=== PATIENT | female | born 1940 | race African-American/Black ===

== ENCOUNTER 2017-03-30 05:50 | Inpatient (IN) ==
[2017-03-30] MEDS ORDERED: POTASSIUM CHLORIDE RIDER 10 MEQ in PREMIX 1 EACH IV PRN (06:13)
[2017-03-30] MEDS ORDERED: MAGNESIUM SULF RIDER 2 GM in PREMIX 1 EACH IV PRN (06:17)
[2017-03-30] MEDS ORDERED: diphenhydrAMINE CAP 25 MG CAPSULE PO ONE (06:30)
[2017-03-30] MEDS ORDERED: DIAZEPAM 5 MG TABLET PO ONE (06:30)
[2017-03-30] MEDS ORDERED: ASPIRIN 325 MG TABLET PO ONE (06:30)
[2017-03-30] MEDS ORDERED: diphenhydrAMINE CAP 25 MG CAPSULE ONE (07:30)
[2017-03-30] MEDS ORDERED: DIAZEPAM 5 MG TABLET ONE (07:30)
[2017-03-30] MEDS: SODIUM CHLORIDE 0.9% 1,000 ML IV SCH (07:35)
[2017-03-30] MEDS ORDERED: LIDOCAINE 1% 20 ML VIAL ONE (09:11)
[2017-03-30] MEDS ORDERED: HEPARIN/NACL 0.9% 2 UNITS/ML 2,000 ML IV ONE (09:11)
[2017-03-30] MEDS ORDERED: MIDAZOLAM 2 MG/2 ML VIAL ONE (09:50)
[2017-03-30] MEDS ORDERED: HYDROmorphone 2 MG/1 ML VIAL ONE (09:50)
[2017-03-30] MEDS ORDERED: VERAPAMIL 5 MG/2 ML VIAL ONE (09:55)
[2017-03-30] MEDS ORDERED: NITROGLYCERIN DRIP 50 MG/250 ML BOTTLE IV ONE (09:55)
[2017-03-30] MEDS ORDERED: ENOXAPARIN 30 MG/0.3 ML SYRINGE ONE (09:59)
[2017-03-30] MEDS ORDERED: CLOPIDOGREL 300 MG TABLET ONE (10:08)
[2017-03-30] MEDS: ACETAMINOPHEN 325 MG TABLET PO SCH ×2 (15:16→20:50)
[2017-03-30] MEDS ORDERED: INSULIN NPH/REGULAR 70/30 100 UNIT/ML SUBCUT SCH (16:30)
[2017-03-30] MEDS ORDERED: BISACODYL 5 MG TABLET PO PRN (16:46)
[2017-03-30] MEDS ORDERED: ZALEPLON 5 MG CAPSULE PO PRN (16:46)
[2017-03-30] MEDS ORDERED: guaiFENesin/DM ER 600-30 MG TABLET PO PRN (16:46)
[2017-03-30] MEDS ORDERED: ONDANSETRON 4 MG/2 ML VIAL IV PRN (16:46)
[2017-03-30] MEDS: POTASSIUM CHLORIDE 20 MEQ TABLET PO SCH (20:49)
[2017-03-30] MEDS: CARVEDILOL 25 MG TABLET PO SCH (20:49)
[2017-03-30] MEDS ORDERED: ROSUVASTATIN 10 MG TABLET PO SCH (21:00)
[2017-03-31 05:54] LABS: Basophils # 0.1 10*3/uL (0.0-0.2); Basophils % 0.7 % (0.0-0.8); Eosinophils # 0.2 10*3/uL (0.0-0.87); Eosinophils % 3.3 % (0.00-10.9); Hematocrit 41.8 VOL% (35.7-47.0); Hemoglobin 13.5 GM/DL (12.0-16.0); Immature Granulocytes % 0.4 %; Immature Granulocytes Absolute 0.03 #; Lymphocytes # 1.4 10*3/uL (1.4-4.0); Lymphocytes % 19.2 % (21.3-54.2); Mean Corpuscular HGB Conc 32.3 GM/DL (32-36); Mean Corpuscular Hemoglobin 30 PG (27-34); Mean Corpuscular Volume 93.9 FL (87-102); Mean Platelet Volume 10.6 FL (9.6-12.0); Monocytes # 0.6 10*3/uL (0.11-0.8); Monocytes % 7.7 % (1.7-12.7); Neutrophils % 68.7 % (38.7-73.9); Platelet Count 142 T/CUMM (130-400); Red Blood Count 4.45 MC/CUMM (3.8-5.5); Red Cell Distribution Width 12.9 % (9.3-17.3); White Blood Count 7.3 T/CUMM (4-12)
[2017-03-31 06:21] LABS: Blood Urea Nitrogen 15 MG/DL (7-18); Glucose 151 MG/DL (74-106); Osmolality,Calculated 289.8 MOS/KG (273-304); Sodium 144 MMOL/L (136-145); Troponin I Only < 0.015 NG/ML (0.00-0.045)
[2017-03-31] MEDS: SODIUM CHLORIDE 0.9% 1,000 ML IV SCH (06:25)
[2017-03-31] MEDS ORDERED: INSULIN NPH/REGULAR 70/30 100 UNIT/ML SUBCUT SCH (07:30)
[2017-03-31 08:30] VITALS: BP 130/55
[2017-03-31] MEDS ORDERED: PANTOPRAZOLE 40 MG TABLET PO SCH (09:00)
[2017-03-31] MEDS ORDERED: CLOPIDOGREL 75 MG TABLET PO SCH (09:00)
[2017-03-31] MEDS ORDERED: ASPIRIN 325 MG TABLET PO SCH (09:00)
[2017-03-31] MEDS ORDERED: CHOLECALCIFEROL 1,000 UNIT TABLET PO SCH (09:00)
[2017-03-31] MEDS ORDERED: LOSARTAN 50 MG TABLET PO SCH (09:00)
[2017-03-31] MEDS ORDERED: FUROSEMIDE 80 MG TABLET PO SCH (09:00)
[2017-03-31] MEDS ORDERED: THYROID 60 MG TABLET PO SCH (09:00)
[2017-03-31] MEDS: POTASSIUM CHLORIDE 20 MEQ TABLET PO SCH (09:10)
[2017-03-31] MEDS: CARVEDILOL 25 MG TABLET PO SCH (09:10)
[2017-03-31] MEDS: ACETAMINOPHEN 325 MG TABLET PO SCH (09:11)
== END 2017-03-31 12:29 | disposition home or self-care (01) | DRG 247 ==
LOC: N.CL 05:50 → N.TELES 10:12
PROVIDERS: ADMIT Internal Medicine Cardiovascular Disease; ATTEND Internal Medicine Cardiovascular Disease

== ENCOUNTER 2017-08-16 12:07 | Inpatient (IN) ==
[2017-08-16 13:33] LABS: Basophils % 0.8 % (0.0-0.8); Eosinophils # 0.1 10*3/uL (0.0-0.87); Eosinophils % 1.6 % (0.00-10.9); Hematocrit 42.9 VOL% (35.7-47.0); Hemoglobin 14.2 GM/DL (12.0-16.0); Immature Granulocytes % 0.2 %; Immature Granulocytes Absolute 0.01 #; Lymphocytes # 1.4 10*3/uL (1.4-4.0); Lymphocytes % 28.7 % (21.3-54.2); Mean Corpuscular HGB Conc 33.1 GM/DL (32-36); Mean Corpuscular Hemoglobin 30 PG (27-34); Mean Corpuscular Volume 89.4 FL (87-102); Mean Platelet Volume 10.6 FL (9.6-12.0); Monocytes # 0.5 10*3/uL (0.11-0.8); Neutrophils # 2.9 10*3/uL (1.4-7.4); Neutrophils % 58.7 % (38.7-73.9); Platelet Count 185 T/CUMM (130-400); Red Cell Distribution Width 12.8 % (9.3-17.3)
[2017-08-16 13:42] LABS: PT Patient Result 10.3 SECS
[2017-08-16 14:02] LABS: Alanine Aminotransferase 47 U/L (13-56); Albumin 3.7 G/DL (3.4-5.0); Alkaline Phosphatase 126 U/L (45-117); Aspartate Amino Transferase 33 U/L (0-37); Blood Urea Nitrogen 37 MG/DL (7-18); Calcium 9.6 MG/DL (8.5-10.1); Glucose 169 MG/DL (74-106); Osmolality,Calculated 291.4 MOS/KG (273-304); Potassium 2.8 MMOL/L (3.5-5.1); Sodium 140 MMOL/L (136-145); Total Protein 8.4 G/DL (6.4-8.3)
[2017-08-16 15:20] LABS: Apearance,Urine CLEAR (Clear); Bilirubin,Urine Negative (Negative); Blood, Urine Negative (Negative); Glucose,Urine (UA) Negative (Negative); Hyaline Casts,Urine 3 /LPF (0-3); Ketones,Urine Negative (Negative); Nitrite,Urine Negative (Negative); Protein,Urine Negative; Squamous Epithelial Cell,Urine Occasional /HPF (0-10); Urine Color Straw (Yellow); Urine Specific Gravity 1.005 (1.001-1.035); Urine Urobilinogen < 2.0 EU/DL (0.2-1.0)
[2017-08-16] MEDS ORDERED: POTASSIUM CHLORIDE 20 MEQ TABLET PO STA (15:22)
[2017-08-16] MEDS ORDERED: ONDANSETRON 4 MG/2 ML VIAL IV PRN (16:15)
[2017-08-16] MEDS ORDERED: GLUCAGON 1 MG VIAL IM PRN (16:15)
[2017-08-16] MEDS ORDERED: DEXTROSE 50% 25 GM/50 ML VIAL IV PRN (16:15)
[2017-08-16] MEDS ORDERED: ACETAMINOPHEN 325 MG TABLET PO PRN (16:15)
[2017-08-16] MEDS ORDERED: COLCHICINE 0.6 MG TABLET PO PRN (16:16)
[2017-08-16] MEDS ORDERED: SODIUM CHLORIDE 0.9% 1,000 ML IV SCH (16:30)
[2017-08-16] MEDS ORDERED: ENOXAPARIN 40 MG/0.4 ML SYRINGE SUBCUT SCH (16:30)
[2017-08-16] MEDS: POTASSIUM CHLORIDE 20 MEQ TABLET PO SCH (21:09)
[2017-08-16] MEDS: ROSUVASTATIN 10 MG TABLET PO SCH (21:09)
[2017-08-16] MEDS: CARVEDILOL 25 MG TABLET PO SCH (21:09)
[2017-08-16] MEDS: INSULIN LISPRO 100 UNIT/ML SUBCUT SCH (22:41)
[2017-08-16] MEDS: PEG BOTH EYES SCH (22:44)
[2017-08-16] MEDS: PROPYLENE GLYCOL BOTH EYES SCH (22:44)
[2017-08-17 05:41] LABS: Basophils % 0.7 % (0.0-0.8); Eosinophils # 0.1 10*3/uL (0.0-0.87); Eosinophils % 1.3 % (0.00-10.9); Hematocrit 39.1 VOL% (35.7-47.0); Hemoglobin 12.7 GM/DL (12.0-16.0); Immature Granulocytes % 0.2 %; Immature Granulocytes Absolute 0.01 #; Lymphocytes # 1.7 10*3/uL (1.4-4.0); Lymphocytes % 31.5 % (21.3-54.2); Mean Corpuscular HGB Conc 32.5 GM/DL (32-36); Mean Corpuscular Hemoglobin 29 PG (27-34); Mean Corpuscular Volume 90.5 FL (87-102); Mean Platelet Volume 10.7 FL (9.6-12.0); Monocytes # 0.8 10*3/uL (0.11-0.8); Monocytes % 15.1 % (1.7-12.7); Neutrophils # 2.8 10*3/uL (1.4-7.4); Neutrophils % 51.2 % (38.7-73.9); Platelet Count 160 T/CUMM (130-400); Red Blood Count 4.32 MC/CUMM (3.8-5.5); Red Cell Distribution Width 12.7 % (9.3-17.3); White Blood Count 5.5 T/CUMM (4-12)
[2017-08-17 06:14] LABS: Osmolality,Calculated 301.3 MOS/KG (273-304); Potassium 3.3 MMOL/L (3.5-5.1); Risk Ratio 5.74; Thyroid Stimulating Hormone 0.511 uIU/ml (0.358-3.74); VLDL CHOLESTEROL 42.8 MG/DL
[2017-08-17] MEDS ORDERED: glipiZIDE 10 MG TABLET PO SCH (07:30)
[2017-08-17] MEDS ORDERED: LOSARTAN 50 MG TABLET PO SCH (09:00)
[2017-08-17] MEDS ORDERED: metOLazone 5 MG TABLET PO SCH (10:00)
[2017-08-17] MEDS: INSULIN NPH/REGULAR 70/30 100 UNIT/ML SUBCUT SCH ×3 (10:20→17:38)
[2017-08-17] MEDS: INSULIN LISPRO 100 UNIT/ML SUBCUT SCH ×5 (10:20→21:38)
[2017-08-17] MEDS: CHOLECALCIFEROL 1,000 UNIT TABLET PO SCH (10:21)
[2017-08-17] MEDS: FUROSEMIDE 80 MG TABLET PO SCH ×2 (10:21→14:23)
[2017-08-17] MEDS: POTASSIUM CHLORIDE 20 MEQ TABLET PO SCH ×2 (10:22→17:37)
[2017-08-17] MEDS: CARVEDILOL 25 MG TABLET PO SCH ×2 (10:22→21:31)
[2017-08-17] MEDS: ASPIRIN 325 MG TABLET PO SCH (10:22)
[2017-08-17] MEDS: CLOPIDOGREL 75 MG TABLET PO SCH (10:23)
[2017-08-17] MEDS: PROPYLENE GLYCOL BOTH EYES SCH ×2 (10:27→21:39)
[2017-08-17] MEDS: PEG BOTH EYES SCH ×2 (10:27→21:39)
[2017-08-17] MEDS: THYROID PORK 30 MG PO SCH (10:32)
[2017-08-17] MEDS ORDERED: POTASSIUM CHLORIDE 20 MEQ TABLET PO ONE (14:09)
[2017-08-17] MEDS: ENOXAPARIN 30 MG/0.3 ML SYRINGE SUBCUT SCH (21:31)
[2017-08-17] MEDS: ROSUVASTATIN 10 MG TABLET PO SCH (21:31)
[2017-08-18 06:20] LABS: Calcium 9.6 MG/DL (8.5-10.1)
[2017-08-18] MEDS ORDERED: POTASSIUM CHLORIDE RIDER 10 MEQ in PREMIX 1 EACH IV PRN (08:07)
[2017-08-18] MEDS: INSULIN LISPRO 100 UNIT/ML SUBCUT SCH ×4 (08:42→21:07)
[2017-08-18] MEDS: INSULIN NPH/REGULAR 70/30 100 UNIT/ML SUBCUT SCH ×2 (08:48→17:06)
[2017-08-18] MEDS ORDERED: SPIRONOLACTONE 25 MG TABLET PO SCH (09:00)
[2017-08-18] MEDS ORDERED: FUROSEMIDE 80 MG TABLET PO SCH (09:00)
[2017-08-18] MEDS: POTASSIUM CHLORIDE 20 MEQ TABLET PO SCH ×2 (09:22→17:06)
[2017-08-18] MEDS: ASPIRIN 325 MG TABLET PO SCH (09:23)
[2017-08-18] MEDS: SODIUM CHLORIDE 0.45% 1,000 ML IV SCH (09:23)
[2017-08-18] MEDS: LOSARTAN 50 MG TABLET PO SCH (09:23)
[2017-08-18] MEDS: CARVEDILOL 25 MG TABLET PO SCH ×2 (09:23→21:08)
[2017-08-18] MEDS: FUROSEMIDE 40 MG TABLET PO SCH (09:23)
[2017-08-18] MEDS: CLOPIDOGREL 75 MG TABLET PO SCH (09:23)
[2017-08-18] MEDS: CHOLECALCIFEROL 1,000 UNIT TABLET PO SCH (09:23)
[2017-08-18] MEDS ORDERED: POTASSIUM CHLORIDE 20 MEQ TABLET PO SCH (10:00)
[2017-08-18] MEDS: PEG BOTH EYES SCH ×2 (10:25→21:14)
[2017-08-18] MEDS: PROPYLENE GLYCOL BOTH EYES SCH ×2 (10:25→21:14)
[2017-08-18] MEDS: THYROID PORK 30 MG PO SCH (10:26)
[2017-08-18] MEDS: POTASSIUM CHLORIDE RIDER 10 MEQ in PREMIX 1 EACH IV SCH ×2 (10:50→12:34)
[2017-08-18] MEDS: SPIRONOLACTONE 50 MG TABLET PO SCH (12:34)
[2017-08-18] MEDS ORDERED: ZINC OXIDE PASTE 113 GM TUBE TOP PRN (15:00)
[2017-08-18] MEDS: ENOXAPARIN 30 MG/0.3 ML SYRINGE SUBCUT SCH (21:07)
[2017-08-18] MEDS: ROSUVASTATIN 10 MG TABLET PO SCH (21:08)
[2017-08-19] MEDS: SODIUM CHLORIDE 0.45% 1,000 ML IV SCH (05:31)
[2017-08-19 06:24] LABS: Calcium 8.9 MG/DL (8.5-10.1); Osmolality,Calculated 292.5 MOS/KG (273-304); Potassium 3.4 MMOL/L (3.5-5.1)
[2017-08-19] MEDS: INSULIN NPH/REGULAR 70/30 100 UNIT/ML SUBCUT SCH ×2 (09:24→17:21)
[2017-08-19] MEDS: CLOPIDOGREL 75 MG TABLET PO SCH (09:26)
[2017-08-19] MEDS: POTASSIUM CHLORIDE 20 MEQ TABLET PO SCH ×2 (09:26→17:23)
[2017-08-19] MEDS: INSULIN LISPRO 100 UNIT/ML SUBCUT SCH ×4 (09:26→20:51)
[2017-08-19] MEDS: ASPIRIN 325 MG TABLET PO SCH (09:26)
[2017-08-19] MEDS: SPIRONOLACTONE 50 MG TABLET PO SCH (09:26)
[2017-08-19] MEDS: CARVEDILOL 25 MG TABLET PO SCH ×2 (09:27→20:51)
[2017-08-19] MEDS: CHOLECALCIFEROL 1,000 UNIT TABLET PO SCH (09:27)
[2017-08-19] MEDS: LOSARTAN 50 MG TABLET PO SCH (09:27)
[2017-08-19] MEDS: FUROSEMIDE 40 MG TABLET PO SCH (09:27)
[2017-08-19] MEDS: PEG BOTH EYES SCH ×2 (09:34→21:15)
[2017-08-19] MEDS: THYROID PORK 30 MG PO SCH (09:34)
[2017-08-19] MEDS: PROPYLENE GLYCOL BOTH EYES SCH ×2 (09:34→21:15)
[2017-08-19] MEDS ORDERED: POTASSIUM CHLORIDE 20 MEQ TABLET PO ONE (13:01)
[2017-08-19] MEDS: POTASSIUM CHLORIDE RIDER 10 MEQ in PREMIX 1 EACH IV SCH ×2 (15:05→16:10)
[2017-08-19] MEDS: ENOXAPARIN 30 MG/0.3 ML SYRINGE SUBCUT SCH (20:51)
[2017-08-19] MEDS: ROSUVASTATIN 10 MG TABLET PO SCH (20:51)
[2017-08-20 06:19] LABS: Calcium 9.5 MG/DL (8.5-10.1); Osmolality,Calculated 293.3 MOS/KG (273-304); Potassium 4.3 MMOL/L (3.5-5.1)
[2017-08-20] MEDS ORDERED: THYROID 60 MG TABLET PO SCH (07:30)
[2017-08-20 07:44] VITALS: BP 137/69
[2017-08-20] MEDS: INSULIN LISPRO 100 UNIT/ML SUBCUT SCH ×2 (07:54→14:09)
[2017-08-20] MEDS: INSULIN NPH/REGULAR 70/30 100 UNIT/ML SUBCUT SCH (09:04)
[2017-08-20] MEDS: POTASSIUM CHLORIDE 20 MEQ TABLET PO SCH (09:06)
[2017-08-20] MEDS: LOSARTAN 50 MG TABLET PO SCH (09:06)
[2017-08-20] MEDS: CLOPIDOGREL 75 MG TABLET PO SCH (09:06)
[2017-08-20] MEDS: CARVEDILOL 25 MG TABLET PO SCH (09:06)
[2017-08-20] MEDS: ASPIRIN 325 MG TABLET PO SCH (09:07)
[2017-08-20] MEDS: CHOLECALCIFEROL 1,000 UNIT TABLET PO SCH (09:07)
[2017-08-20] MEDS: SPIRONOLACTONE 50 MG TABLET PO SCH (09:07)
[2017-08-20] MEDS: PROPYLENE GLYCOL BOTH EYES SCH (09:08)
[2017-08-20] MEDS: FUROSEMIDE 40 MG TABLET PO SCH (09:08)
[2017-08-20] MEDS: PEG BOTH EYES SCH (09:08)
== END 2017-08-20 14:13 | disposition home or self-care (01) | DRG 641 ==
LOC: EDUNIT# → EDBD → N.ED 12:07 → N.EDINP 12:07 → N.2W 16:41 → N.TELES 19:35
PROVIDERS: ADMIT Internal Medicine; ATTEND Internal Medicine

== ENCOUNTER 2018-02-01 14:23 | Observation (INO) ==
[2018-02-01] MEDS ORDERED: LACTATED RINGERS 500 ML IV ONE (14:56)
[2018-02-01 15:09] LABS: Basophils % 0.8 % (0.0-0.8); Eosinophils # 0.1 10*3/uL (0.0-0.87); Eosinophils % 2.1 % (0.00-10.9); Hematocrit 39.9 VOL% (35.7-47.0); Hemoglobin 13.3 GM/DL (12.0-16.0); Immature Granulocytes % 0.4 %; Immature Granulocytes Absolute 0.02 #; Lymphocytes # 1.5 10*3/uL (1.4-4.0); Mean Corpuscular HGB Conc 33.3 GM/DL (32-36); Mean Corpuscular Hemoglobin 30 PG (27-34); Mean Corpuscular Volume 90.3 FL (87-102); Mean Platelet Volume 10.8 FL (9.6-12.0); Monocytes # 0.5 10*3/uL (0.11-0.8); Neutrophils # 3.1 10*3/uL (1.4-7.4); Neutrophils % 57.7 % (38.7-73.9); Platelet Count 170 T/CUMM (130-400); Red Blood Count 4.42 MC/CUMM (3.8-5.5); White Blood Count 5.3 T/CUMM (4-12)
[2018-02-01 15:31] LABS: Alanine Aminotransferase 33 U/L (13-56); Albumin 3.6 G/DL (3.4-5.0); Alkaline Phosphatase 97 U/L (45-117); Aspartate Amino Transferase 18 U/L (0-37); Bilirubin,Total < 0.39 MG/DL (0.2-1.0); Blood Urea Nitrogen 30 MG/DL (7-18); Calcium 9.7 MG/DL (8.5-10.1); Glucose 342 MG/DL (74-106); Osmolality,Calculated 292.8 MOS/KG (273-304); Potassium 3.7 MMOL/L (3.5-5.1); Sodium 137 MMOL/L (136-145); Total Protein 7.9 G/DL (6.4-8.3)
[2018-02-01 17:02] LABS: Apearance,Urine Slightly Hazy (Clear); Bacteria,Urine Many /HPF (Few); Bilirubin,Urine Negative (Negative); Blood, Urine Negative (Negative); Glucose,Urine (UA) 150 mg/dL (Negative); Hyaline Casts,Urine 7 /LPF (0-3); Ketones,Urine Negative (Negative); Mucus,Urine Occasional /LPF (Occasional); Nitrite,Urine Negative (Negative); Protein,Urine Negative; RBC,Urine <1 /HPF (0-4); Squamous Epithelial Cell,Urine Occasional /HPF (0-10); Urine Color Straw (Yellow); Urine Specific Gravity 1.006 (1.001-1.035); Urine Urobilinogen < 2.0 EU/DL (0.2-1.0); WBC,Urine 4 /HPF (0-6)
[2018-02-01] MEDS ORDERED: LACTATED RINGERS 1,000 ML IV ONE (17:11)
[2018-02-01] MEDS ORDERED: cefTRIAXone 1,000 MG in SODIUM CHLORIDE 0.9% 100 ML IV STA (17:21)
[2018-02-01] MEDS ORDERED: FLUCONAZOLE 200 MG TABLET PO STA (18:11)
[2018-02-01] MEDS ORDERED: DEXTROSE 50% 25 GM/50 ML VIAL IV PRN (18:58)
[2018-02-01] MEDS ORDERED: GLUCAGON 1 MG VIAL IM PRN (18:58)
[2018-02-01] MEDS ORDERED: ONDANSETRON 4 MG/2 ML VIAL IV PRN (18:58)
[2018-02-01] MEDS ORDERED: DOCUSATE SODIUM 100 MG CAPSULE PO PRN (18:58)
[2018-02-01] MEDS ORDERED: ACETAMINOPHEN 325 MG TABLET PO PRN (18:58)
[2018-02-01 21:27] LABS: Troponin I < 0.015 NG/ML (0.00-0.045)
[2018-02-01] MEDS: INSULIN REGULAR 100 UNIT/ML SUBCUT SCH (22:11)
[2018-02-01] MEDS: CARVEDILOL 25 MG TABLET PO SCH (22:12)
[2018-02-01] MEDS: ENOXAPARIN 30 MG/0.3 ML SYRINGE SUBCUT SCH (22:13)
[2018-02-01] MEDS: GABAPENTIN 100 MG CAPSULE PO SCH (22:13)
[2018-02-01] MEDS: CEFTAROLINE 400 MG in SODIUM CHLORIDE 0.9% 100 ML IV SCH (22:20)
[2018-02-02 05:46] LABS: Basophils # 0.1 10*3/uL (0.0-0.2); Basophils % 0.8 % (0.0-0.8); Eosinophils # 0.1 10*3/uL (0.0-0.87); Eosinophils % 2.1 % (0.00-10.9); Hematocrit 37.2 VOL% (35.7-47.0); Hemoglobin 12.5 GM/DL (12.0-16.0); Immature Granulocytes % 0.3 %; Immature Granulocytes Absolute 0.02 #; Lymphocytes # 2.4 10*3/uL (1.4-4.0); Lymphocytes % 36.3 % (21.3-54.2); Mean Corpuscular HGB Conc 33.6 GM/DL (32-36); Mean Corpuscular Hemoglobin 30 PG (27-34); Mean Corpuscular Volume 89.6 FL (87-102); Monocytes # 0.8 10*3/uL (0.11-0.8); Monocytes % 12.7 % (1.7-12.7); Neutrophils # 3.1 10*3/uL (1.4-7.4); Neutrophils % 47.8 % (38.7-73.9); Platelet Count 148 T/CUMM (130-400); Red Blood Count 4.15 MC/CUMM (3.8-5.5); Red Cell Distribution Width 12.1 % (9.3-17.3); White Blood Count 6.5 T/CUMM (4-12)
[2018-02-02 05:58] LABS: CKMB % 2.4 %; Troponin I < 0.015 NG/ML (0.00-0.045)
[2018-02-02 06:08] LABS: Albumin 2.9 G/DL (3.4-5.0); Bilirubin,Total 0.5 MG/DL (0.2-1.0); Calcium 9.4 MG/DL (8.5-10.1); Osmolality,Calculated 288.4 MOS/KG (273-304); Potassium 3.8 MMOL/L (3.5-5.1); Thyroid Stimulating Hormone 0.462 uIU/ml (0.358-3.74); Total Protein 6.8 G/DL (6.4-8.3)
[2018-02-02] MEDS ORDERED: COLCHICINE 0.6 MG TABLET PO PRN (08:42)
[2018-02-02] MEDS ORDERED: metOLazone 5 MG TABLET PO PRN (08:42)
[2018-02-02] MEDS: ASPIRIN 325 MG TABLET PO SCH (09:15)
[2018-02-02] MEDS: CHOLECALCIFEROL 1,000 UNIT TABLET PO SCH (09:15)
[2018-02-02] MEDS: FUROSEMIDE 40 MG TABLET PO SCH (09:15)
[2018-02-02] MEDS: SPIRONOLACTONE 25 MG TABLET PO SCH (09:16)
[2018-02-02] MEDS: CLOPIDOGREL 75 MG TABLET PO SCH (09:16)
[2018-02-02] MEDS: CARVEDILOL 25 MG TABLET PO SCH ×2 (09:16→16:39)
[2018-02-02] MEDS: GABAPENTIN 100 MG CAPSULE PO SCH ×3 (09:16→20:39)
[2018-02-02] MEDS: POTASSIUM CHLORIDE 20 MEQ TABLET PO SCH (09:16)
[2018-02-02] MEDS: CEFTAROLINE 400 MG in SODIUM CHLORIDE 0.9% 100 ML IV SCH (09:17)
[2018-02-02] MEDS: glipiZIDE 10 MG TABLET PO SCH (09:23)
[2018-02-02] MEDS: LOSARTAN 50 MG TABLET PO SCH (09:23)
[2018-02-02] MEDS ORDERED: SODIUM CHLORIDE 0.9% 250 ML IV ONE (09:47)
[2018-02-02] MEDS: INSULIN NPH/REGULAR 70/30 100 UNIT/ML SUBCUT SCH (10:06)
[2018-02-02] MEDS: INSULIN REGULAR 100 UNIT/ML SUBCUT SCH ×3 (15:00→20:39)
[2018-02-02] MEDS ORDERED: INSULIN NPH/REGULAR 70/30 100 UNIT/ML SUBCUT SCH (16:30)
[2018-02-02] MEDS: ENOXAPARIN 30 MG/0.3 ML SYRINGE SUBCUT SCH (20:39)
[2018-02-02] MEDS ORDERED: ROSUVASTATIN 10 MG TABLET PO SCH (21:00)
[2018-02-03 08:08] VITALS: BP 146/68
[2018-02-03] MEDS: INSULIN NPH/REGULAR 70/30 100 UNIT/ML SUBCUT SCH ×2 (08:33→09:48)
[2018-02-03] MEDS: FUROSEMIDE 40 MG TABLET PO SCH (08:35)
[2018-02-03] MEDS: ASPIRIN 325 MG TABLET PO SCH (08:35)
[2018-02-03] MEDS: LOSARTAN 50 MG TABLET PO SCH (08:35)
[2018-02-03] MEDS: CHOLECALCIFEROL 1,000 UNIT TABLET PO SCH (08:36)
[2018-02-03] MEDS: GABAPENTIN 100 MG CAPSULE PO SCH (08:36)
[2018-02-03] MEDS: POTASSIUM CHLORIDE 20 MEQ TABLET PO SCH (08:36)
[2018-02-03] MEDS: CLOPIDOGREL 75 MG TABLET PO SCH (08:37)
[2018-02-03] MEDS: SPIRONOLACTONE 25 MG TABLET PO SCH (08:37)
[2018-02-03] MEDS: glipiZIDE 10 MG TABLET PO SCH (08:37)
[2018-02-03] MEDS: CARVEDILOL 25 MG TABLET PO SCH (08:44)
[2018-02-03] MEDS: INSULIN REGULAR 100 UNIT/ML SUBCUT SCH (09:48)
== END 2018-02-03 12:18 | disposition home health service (06) ==
LOC: N.ED 14:23 → N.EDINP 14:23 → N.TELEN 20:05
PROVIDERS: ADMIT Internal Medicine Infectious Disease; ATTEND Internal Medicine Infectious Disease

== ENCOUNTER 2018-08-25 08:50 | Inpatient (IN) ==
[2018-08-25 09:46] LABS: Basophils % 0.5 % (0.0-0.8); Eosinophils # 0.2 10*3/uL (0.0-0.87); Eosinophils % 3.6 % (0.00-10.9); Hematocrit 39.8 VOL% (35.7-47.0); Hemoglobin 12.9 GM/DL (12.0-16.0); Immature Granulocytes % 0.3 %; Immature Granulocytes Absolute 0.02 #; Lymphocytes # 1.5 10*3/uL (1.4-4.0); Lymphocytes % 23.5 % (21.3-54.2); Mean Corpuscular HGB Conc 32.4 GM/DL (32-36); Mean Corpuscular Volume 92.6 FL (87-102); Mean Platelet Volume 10.5 FL (9.6-12.0); Monocytes % 11.2 % (1.7-12.7); Neutrophils % 60.9 % (38.7-73.9); Platelet Count 152 T/CUMM (130-400); Red Cell Distribution Width 12.6 % (9.3-17.3); White Blood Count 6.3 T/CUMM (4-12)
[2018-08-25 10:06] LABS: Alanine Aminotransferase 27 U/L (13-56); Albumin 3.6 G/DL (3.4-5.0); Alkaline Phosphatase 119 U/L (45-117); Aspartate Amino Transferase 15 U/L (0-37); Bilirubin,Total < 0.39 MG/DL (0.2-1.0); Blood Urea Nitrogen 28 MG/DL (7-18); Calcium 10.2 MG/DL (8.5-10.1); Glucose 147 MG/DL (74-106); Total Protein 7.7 G/DL (6.4-8.3)
[2018-08-25 10:32] LABS: Apearance,Urine CLEAR (Clear); Bacteria,Urine Occasional /HPF (Few); Bilirubin,Urine Negative (Negative); Blood, Urine Moderate mg/dL (Negative); Glucose,Urine (UA) Negative (Negative); Hyaline Casts,Urine 8 /LPF (0-3); Ketones,Urine Negative (Negative); Mucus,Urine Occasional /LPF (Occasional); Nitrite,Urine Negative (Negative); Protein,Urine Negative; RBC,Urine <1 /HPF (0-4); Squamous Epithelial Cell,Urine Occasional /HPF (0-10); Urine Color Straw (Yellow); Urine Specific Gravity 1.009 (1.001-1.035); Urine Urobilinogen < 2.0 EU/DL (0.2-1.0); WBC,Urine <1 /HPF (0-6)
[2018-08-25] MEDS ORDERED: PROMETHAZINE 25 MG/1 ML VIAL IM PRN (11:13)
[2018-08-25] MEDS ORDERED: MORPHINE 4 MG/1 ML VIAL IV PRN (11:13)
[2018-08-25] MEDS ORDERED: ACETAMINOPHEN 325 MG TABLET PO PRN (11:13)
[2018-08-25] MEDS ORDERED: LACTULOSE 20 GM/30 ML UDCUP PO PRN (11:13)
[2018-08-25] MEDS ORDERED: POTASSIUM CHLORIDE 20 MEQ TABLET PO STA ×2 (11:14→11:46)
[2018-08-25] MEDS ORDERED: DEXTROSE 50% 25 GM/50 ML VIAL IV PRN (11:18)
[2018-08-25] MEDS ORDERED: GLUCAGON 1 MG VIAL IM PRN (11:18)
[2018-08-25] MEDS ORDERED: DEXT 5% NACL 0.45% KCL 40 MEQ 40 MEQ/1,000 ML BAG IV SCH (11:30)
[2018-08-25] MEDS ORDERED: POTASSIUM CHLORIDE INJ 40 MEQ in DEXTROSE 5% NACL 0.45% 1,000 ML IV SCH (11:30)
[2018-08-25 12:12] LABS: Thyroid Stimulating Hormone 1.37 uIU/ml (0.358-3.74)
[2018-08-25] MEDS ORDERED: COLCHICINE 0.6 MG CAPSULE PO PRN (12:59)
[2018-08-25] MEDS: INSULIN LISPRO 100 UNIT/ML SUBCUT SCH ×3 (13:55→21:39)
[2018-08-25] MEDS ORDERED: POTASSIUM CHLORIDE 20 MEQ TABLET PO SCH (14:00)
[2018-08-25] MEDS: PANTOPRAZOLE 40 MG TABLET PO SCH (14:46)
[2018-08-25] MEDS: GABAPENTIN 100 MG CAPSULE PO SCH ×2 (14:46→21:40)
[2018-08-25] MEDS: ENOXAPARIN 40 MG/0.4 ML SYRINGE SUBCUT SCH (14:49)
[2018-08-25] MEDS ORDERED: POTASSIUM CHLORIDE 20 MEQ TABLET PO ONE (15:00)
[2018-08-25] MEDS: INSULIN NPH/REGULAR 70/30 100 UNIT/ML SUBCUT SCH (16:46)
[2018-08-25] MEDS: POTASSIUM CHLORIDE 20 MEQ TABLET PO SCH (18:13)
[2018-08-25] MEDS ORDERED: CARVEDILOL 25 MG TABLET PO SCH (21:00)
[2018-08-25] MEDS: ROSUVASTATIN 20 MG TABLET PO SCH (21:44)
[2018-08-26] MEDS: INSULIN LISPRO 100 UNIT/ML SUBCUT SCH ×5 (00:53→22:16)
[2018-08-26 05:43] LABS: Basophils % 0.7 % (0.0-0.8); Eosinophils # 0.2 10*3/uL (0.0-0.87); Eosinophils % 3.3 % (0.00-10.9); Hematocrit 38.2 VOL% (35.7-47.0); Hemoglobin 12.3 GM/DL (12.0-16.0); Immature Granulocytes % 0.2 %; Immature Granulocytes Absolute 0.01 #; Lymphocytes # 1.7 10*3/uL (1.4-4.0); Lymphocytes % 30.2 % (21.3-54.2); Mean Corpuscular HGB Conc 32.2 GM/DL (32-36); Mean Corpuscular Volume 92.9 FL (87-102); Mean Platelet Volume 10.7 FL (9.6-12.0); Monocytes % 16.6 % (1.7-12.7); Platelet Count 140 T/CUMM (130-400); Red Blood Count 4.11 MC/CUMM (3.8-5.5); Red Cell Distribution Width 12.4 % (9.3-17.3); White Blood Count 5.5 T/CUMM (4-12)
[2018-08-26 06:08] LABS: Albumin 3.2 G/DL (3.4-5.0); Bilirubin,Total 0.4 MG/DL (0.2-1.0); Calcium 9.7 MG/DL (8.5-10.1); Osmolality,Calculated 290.3 MOS/KG (273-304); Risk Ratio 3.09; Total Protein 6.8 G/DL (6.4-8.3)
[2018-08-26 06:22] LABS: Band Neutrophils 1 % (0-10); Eosinophils 6 % (0-10); Hypochromasia 1+; Lymphocytes 30 % (20-55); Microcytosis Slight; Segmented Neutrophils 51 % (50-85); Total Cells Counted 100
[2018-08-26 06:23] LABS: Platelet Estimate Adequate
[2018-08-26] MEDS ORDERED: INSULIN NPH/REGULAR 70/30 100 UNIT/ML SUBCUT SCH (07:30)
[2018-08-26] MEDS: INSULIN NPH/REGULAR 70/30 100 UNIT/ML SUBCUT SCH ×2 (08:09→15:43)
[2018-08-26] MEDS ORDERED: POTASSIUM CHLORIDE 20 MEQ TABLET PO ONE (08:56)
[2018-08-26] MEDS ORDERED: SPIRONOLACTONE 25 MG TABLET PO SCH (09:00)
[2018-08-26] MEDS: THYROID 60 MG TABLET PO SCH (09:43)
[2018-08-26] MEDS: CARVEDILOL 12.5 MG TABLET PO SCH ×2 (09:44→22:14)
[2018-08-26] MEDS: GABAPENTIN 100 MG CAPSULE PO SCH ×3 (09:44→22:15)
[2018-08-26] MEDS: ASPIRIN 325 MG TABLET PO SCH (09:45)
[2018-08-26] MEDS: PANTOPRAZOLE 40 MG TABLET PO SCH (09:45)
[2018-08-26] MEDS: CLOPIDOGREL 75 MG TABLET PO SCH (09:45)
[2018-08-26] MEDS: POTASSIUM CHLORIDE INJ 20 MEQ in LACTATED RINGERS 1,000 ML IV SCH ×2 (10:51→22:15)
[2018-08-26] MEDS: ENOXAPARIN 40 MG/0.4 ML SYRINGE SUBCUT SCH (11:07)
[2018-08-26] MEDS: ROSUVASTATIN 20 MG TABLET PO SCH (22:15)
[2018-08-27 04:52] LABS: Basophils % 0.7 % (0.0-0.8); Eosinophils # 0.2 10*3/uL (0.0-0.87); Hematocrit 37.2 VOL% (35.7-47.0); Hemoglobin 11.7 GM/DL (12.0-16.0); Immature Granulocytes % 0.3 %; Immature Granulocytes Absolute 0.02 #; Lymphocytes # 2.2 10*3/uL (1.4-4.0); Lymphocytes % 37.4 % (21.3-54.2); Mean Corpuscular HGB Conc 31.5 GM/DL (32-36); Mean Corpuscular Volume 93.2 FL (87-102); Mean Platelet Volume 10.6 FL (9.6-12.0); Monocytes % 12.5 % (1.7-12.7); Neutrophils % 46.1 % (38.7-73.9); Platelet Count 144 T/CUMM (130-400); Red Blood Count 3.99 MC/CUMM (3.8-5.5); Red Cell Distribution Width 12.4 % (9.3-17.3); White Blood Count 5.9 T/CUMM (4-12)
[2018-08-27 05:13] LABS: Calcium 9.4 MG/DL (8.5-10.1); Osmolality,Calculated 293.4 MOS/KG (273-304)
[2018-08-27] MEDS: POTASSIUM CHLORIDE INJ 20 MEQ in LACTATED RINGERS 1,000 ML IV SCH ×2 (06:23→15:56)
[2018-08-27] MEDS: POTASSIUM CHLORIDE 20 MEQ TABLET PO SCH (07:57)
[2018-08-27] MEDS: GABAPENTIN 100 MG CAPSULE PO SCH ×3 (08:48→20:10)
[2018-08-27] MEDS: THYROID 60 MG TABLET PO SCH (08:48)
[2018-08-27] MEDS: INSULIN LISPRO 100 UNIT/ML SUBCUT SCH ×4 (08:48→20:10)
[2018-08-27] MEDS: PANTOPRAZOLE 40 MG TABLET PO SCH (08:48)
[2018-08-27] MEDS: CLOPIDOGREL 75 MG TABLET PO SCH (08:48)
[2018-08-27] MEDS: ASPIRIN 325 MG TABLET PO SCH (08:48)
[2018-08-27] MEDS: CARVEDILOL 12.5 MG TABLET PO SCH ×2 (08:48→20:10)
[2018-08-27] MEDS: INSULIN NPH/REGULAR 70/30 100 UNIT/ML SUBCUT SCH ×2 (08:48→16:44)
[2018-08-27] MEDS: ENOXAPARIN 40 MG/0.4 ML SYRINGE SUBCUT SCH (12:01)
[2018-08-27] MEDS: ROSUVASTATIN 20 MG TABLET PO SCH (20:10)
[2018-08-28 05:15] LABS: Basophils # 0.1 10*3/uL (0.0-0.2); Basophils % 0.8 % (0.0-0.8); Eosinophils # 0.2 10*3/uL (0.0-0.87); Eosinophils % 3.7 % (0.00-10.9); Hematocrit 37.7 VOL% (35.7-47.0); Hemoglobin 12.3 GM/DL (12.0-16.0); Immature Granulocytes % 0.3 %; Immature Granulocytes Absolute 0.02 #; Lymphocytes # 2.5 10*3/uL (1.4-4.0); Lymphocytes % 41.5 % (21.3-54.2); Mean Corpuscular HGB Conc 32.6 GM/DL (32-36); Mean Corpuscular Volume 92.4 FL (87-102); Monocytes % 14.9 % (1.7-12.7); Neutrophils % 38.8 % (38.7-73.9); Platelet Count 136 T/CUMM (130-400); Red Blood Count 4.08 MC/CUMM (3.8-5.5); Red Cell Distribution Width 12.4 % (9.3-17.3)
[2018-08-28 05:24] LABS: Calcium 9.6 MG/DL (8.5-10.1)
[2018-08-28] MEDS: CARVEDILOL 12.5 MG TABLET PO SCH (08:54)
[2018-08-28] MEDS: CLOPIDOGREL 75 MG TABLET PO SCH (08:54)
[2018-08-28] MEDS: THYROID 60 MG TABLET PO SCH (08:54)
[2018-08-28] MEDS: GABAPENTIN 100 MG CAPSULE PO SCH (08:54)
[2018-08-28] MEDS: ASPIRIN 325 MG TABLET PO SCH (08:55)
[2018-08-28] MEDS: INSULIN NPH/REGULAR 70/30 100 UNIT/ML SUBCUT SCH (08:55)
[2018-08-28] MEDS: PANTOPRAZOLE 40 MG TABLET PO SCH (08:55)
[2018-08-28] MEDS: INSULIN LISPRO 100 UNIT/ML SUBCUT SCH ×2 (08:56→11:47)
[2018-08-28] MEDS: ENOXAPARIN 40 MG/0.4 ML SYRINGE SUBCUT SCH (11:47)
[2018-08-28 11:55] VITALS: BP 152/71
== END 2018-08-28 15:10 | disposition home or self-care (01) | DRG 641 ==
LOC: EDUNIT# → EDBD → N.EDINP 08:50 → N.ED 08:50 → SUATTDRO 11:12 → N.5E 11:28
PROVIDERS: ADMIT Internal Medicine; ATTEND Internal Medicine